=== PATIENT | female | born 1995 | race Hispanic/Latino ===

== ENCOUNTER 2019-11-30 13:52 | Observation (INO) | payer MEDICAID ==
[2019-11-30 16:07] LABS: Bacteria,Urine 4+ /HPF (Negative); Bilirubin,Urine NEG (Negative); Blood,Urine LG (Negative); Color,Urine Yellow (Yellow); Mucus,Urine FEW /HPF; Protein,Urine <15 mg/dL mg/dL (Negative); Urobilinogen,Urine < 2.0 mg/dL (<2.0)
[2019-11-30 16:08] LABS: RBC,Urine > 182.0 /HPF (0.0-6.0)
[2019-11-30 17:28] LABS: Basophils % (Auto) 0.2 % (0.0-1.8); Eosinophils # (Auto) 0.1 K/mm3 (0.0-0.4); Eosinophils % (Auto) 0.9 % (0.0-4.3); Hematocrit 36.6 % (30.3-42.9); Hemoglobin 11.8 gm/dl (10.1-14.3); Lymphocytes # (Auto) 1.9 K/mm3 (1.2-5.4); Lymphocytes % (Auto) 16.7 % (13.4-35.0); Mean Corpuscular HGB Conc 32 % (30-34); Mean Corpuscular Volume 86 fl (79-97); Monocytes # (Auto) 1.1 K/mm3 (0.0-0.8); Monocytes % (Auto) 10.1 % (0.0-7.3); Platelet Count 249 K/mm3 (140-440); Red Blood Count 4.26 M/mm3 (3.65-5.03); Red Cell Distribution Width 14.1 % (13.2-15.2)
[2019-11-30 17:40] VITALS: BP 120/63
[2019-11-30 17:48] LABS: Alanine Aminotransferase 15 units/L (7-56); Uric Acid 6.9 mg/dL (3.5-7.6)
== END 2019-11-30 18:10 | disposition home or self-care (01) ==
LOC: TRG 13:52 → LD 14:23 → INTOOBSV 14:23
PROVIDERS: ADMIT Obstetrics & Gynecology; ATTEND Obstetrics & Gynecology
DX: O99.213 Obesity complicating pregnancy, third trimester (principal); E66.01 Morbid (severe) obesity due to excess calories; Z3A.37 37 weeks gestation of pregnancy; Z68.42 Body mass index [BMI] 45.0-49.9, adult
CPT/HCPCS: 36415; 81001; 82565; 83615; 84450; 84460; 84550; 85025; 87086; G0378

== ENCOUNTER 2019-12-13 20:22 | Inpatient (IN) | payer MEDICAID ==
[2019-12-13] MEDS ORDERED: BUTORPHANOL 2 MG/1 ML INJ IV PRN (23:12)
[2019-12-13] MEDS ORDERED: TERBUTALINE 1 MG/1 ML INJ SUB-Q PRN (23:13)
[2019-12-13] MEDS ORDERED: LACTATED RINGERS 1,000 ML IV SCH (23:45)
[2019-12-13] MEDS: FAMOTIDINE 20 MG TAB PO SCH (23:52)
[2019-12-13] MEDS: miSOPROStol 25 MCG TAB VG SCH (23:58)
[2019-12-14 00:47] LABS: Hematocrit 35.9 % (30.3-42.9); Hemoglobin 12.1 gm/dl (10.1-14.3); Mean Corpuscular HGB Conc 34 % (30-34); Mean Corpuscular Volume 86 fl (79-97); Platelet Count 271 K/mm3 (140-440); Red Cell Distribution Width 14.6 % (13.2-15.2)
[2019-12-14] MEDS: miSOPROStol 25 MCG TAB VG SCH ×3 (03:45→11:45)
[2019-12-14] MEDS ORDERED: LIDOCAINE (2%) 20 MG/1 ML VIAL 20 ML MDV INFILTRATI ONE (08:23)
[2019-12-14] MEDS ORDERED: TERBUTALINE 1 MG/1 ML INJ IVP PRN (08:23)
[2019-12-14] MEDS ORDERED: TERBUTALINE 1 MG/1 ML INJ SUB-Q PRN (08:23)
[2019-12-14] MEDS ORDERED: MINERAL OIL 30 ML ORAL LIQD PO PRN (08:23)
[2019-12-14] MEDS ORDERED: ePHEDrine SULFATE 50 MG/1 ML INJ IV PRN (08:23)
[2019-12-14] MEDS ORDERED: PROMETHAZINE 25 MG TAB PO PRN (08:23)
--- NOTE | 2019-12-14 08:33 | History and Physical Report ---
History of Present Illness Date of examination: 12/14/19 Date of admission: 12/13/19 20:22 Chief complaint: I'm here for induction History of present illness: Pt is 24 year old who presents at 39.2 weeks for induction secondary to morbid obesity per [facility]. Pt has had an uncomplicated course. Pt has high anxiety about her ability to deliver a baby vaginally. She is GBS negative Past History Past Medical History: no pertinent history Past Surgical History: no surgical history Family/Genetic History: none Social history: - Obstetrical History Expected Date of Delivery: 12/19/19 Actual Gestation: 39 Week(s) 2 Day(s) : 1 Para: 0 Number of Living Children: 0 Medications and Allergies Allergies Allergy/AdvReac Type Severity Reaction Status Date / Time No Known Allergies Allergy Verified 12/13/19 23:21 Home Medications Medication Instructions Recorded Confirmed Last Taken Type No Known Home Medications [No 12/13/19 12/13/19 Unknown History Reported Home Medications] Active Meds: Active Medications Butorphanol Tartrate (Stadol) 2 mg IV Q2H PRN PRN Reason: Labor Pain Last Admin: 12/14/19 05:08 Dose: 2 mg Documented by: Ephedrine Sulfate (Ephedrine Sulfate) 10 mg IV Q2M PRN PRN Reason: Hypotension Famotidine (Pepcid) 20 mg PO BID HOLLY Last Admin: 12/13/19 23:52 Dose: 20 mg Documented by: Lactated Ringer's (Lactated Ringers) 1,000 mls @ 125 mls/hr IV DIRECT HOLLY Last Admin: 12/14/19 03:54 Dose: 125 mls/hr Documented by: Oxytocin/Sodium Chloride (Pitocin/Ns 20 Unit/1000ml Drip) 20 units in 1,000 mls @ 125 mls/hr IV DIRECT HOLLY Oxytocin/Sodium Chloride (Pitocin/Ns 30 Unit/500ml) 30 units in 500 mls @ 1 mls/hr IV TITR HOLLY; Protocol Oxytocin/Sodium Chloride (Pitocin/Ns 30 Unit/500ml) 30 units in 500 mls @ 4 mls/hr IV TITR HOLLY; Protocol Lactated Ringer's (Lactated Ringers) 1,000 mls @ 125 mls/hr IV DIRECT HOLLY Lidocaine (Xylocaine 2%) 20 ml INFILTRATI ONCE ONE Stop: 12/14/19 08:24 Mineral Oil (Mineral Oil) 30 ml PO QHS PRN PRN Reason: Constipation Misoprostol (Cytotec) 25 mcg VG Q4H [facility] Stop: 12/14/19 11:46 Last Admin: 12/13/19 23:58 Dose: 25 mcg Documented by: Promethazine HCl (Phenergan) 25 mg PO Q6H PRN PRN Reason: Nausea And Vomiting Terbutaline Sulfate (Brethine) 0.25 mg SUB-Q ONCE PRN PRN Reason: HYPER STIMULATION OF UTERUS Terbutaline Sulfate (Brethine) 0.25 mg SUB-Q ONCE PRN PRN Reason: Hyperstimulation/Hypertonicity Terbutaline Sulfate (Brethine) 0.25 mg IVP ONCE PRN PRN Reason: Hyperstimulation/Hypertonicity Review of Systems All systems: negative Eyes: deferred Ears, nose, mouth and throat: deferred Breasts: deferred Genitourinary: deferred Rectal Exam: deferred - Vital Signs Vital signs: Vital Signs Pulse BP 110 H 137/77 12/13/19 21:50 12/13/19 21:50 Temp Pulse Resp BP Pulse Ox 95 H 24 109/55 98 12/14/19 08:28 12/14/19 05:08 12/14/19 08:23 12/14/19 08:28 - Physical Exam Breasts: Positive: deferred Cardiovascular: Regular rate, Normal S1, Normal S2 Lungs: Positive: Clear to auscultation, Normal air movement Abdomen: Positive: normal appearance, soft, normal bowel sounds Genitourinary (Female): Positive: normal external genitalia, normal perenium Vagina: Positive: normal moisture Uterus: Positive: normal size, enlarged - Obstetrical FHR: auscultation normal Cervical Dilatation: 1 Cervical Effacement Percentage: 50 station: -3 Uterine Contraction Pattern: Irregular Uterine Tone Measurement Phase: Contraction Uterine Contraction Intensity: Moderate Results Result Diagrams: 12/14/19 08:58 Abnormal lab results 12/13/19 Range/Units 23:50 WBC 12.6 H (4.5-11.0) K/mm3 All other labs normal. Assessment and Plan IUP at 39.2 weeks here for induction of labor. Admit to L&D. Begin cytotec placement.Pt has high anxiety regarding delivery and has been stating that she "will probably need a ". I advised patient multiple times that induction may take 2-4 days and that she would need to be patient. Will begin induction on this evening.
[2019-12-14] MEDS ORDERED: OXYTOCIN 20 UNIT/1000ML DRIP 20 UNITS/1,000 ML BAG IV SCH ×3 (09:00→21:28)
[2019-12-14] MEDS ORDERED: LACTATED RINGERS 1,000 ML IV SCH ×2 (09:00→18:00)
[2019-12-14] MEDS ORDERED: OXYTOCIN DRIP 30 UNITS/500 ML BAG IV SCH ×2 (09:00)
[2019-12-14 09:24] LABS: Hematocrit 32.8 % (30.3-42.9); Hemoglobin 10.9 gm/dl (10.1-14.3)
[2019-12-14] MEDS: FAMOTIDINE 20 MG TAB PO SCH (10:00)
--- NOTE | 2019-12-14 16:47 | Event Note ---
Date: 12/14/19 In to see patient. Per nursing staff, patient has been crying and turning all over bed with mild contractions. Pt states that she would prefer a and that "she can't take it". pt appears to be decompensating. I attempted to calm her fears however, she is insistent. Will proceed with .
[2019-12-14] MEDS ORDERED: FAMOTIDINE 20 MG/2 ML INJ IV SCH (17:31)
[2019-12-14] MEDS ORDERED: BICITRA ORAL LIQD 30ML PO SCH (17:31)
[2019-12-14] MEDS ORDERED: METOCLOPRAMIDE 10 MG/2 ML INJ IV SCH (17:31)
--- NOTE | 2019-12-14 17:34 | Anesthesia Day of Surgery ---
Anesthesia Day of Surgery - Day of Surgery Patient Examined: Yes Patient H&P Reviewed: Yes Patient is NPO: No (1300) Beta Blockers: No Cardiac Clearance: No Pulmonary Clearance: No Jake's Test: N/A
[2019-12-14] MEDS ORDERED: ONDANSETRON 4 MG/2 ML INJ IV PRN (17:43)
[2019-12-14] MEDS ORDERED: HYDROmorphone 1 MG/1 ML INJ IV PRN (17:43)
[2019-12-14] MEDS ORDERED: NALOXONE 0.4 MG/1 ML INJ IV PRN ×2 (17:43→21:28)
--- NOTE | 2019-12-14 17:43 | Anesthesia Consultation ---
Anesthesia Consult and Med Hx Date of service: 12/14/19 - Airway Anesthetic Teeth Evaluation: Poor ROM Head & Neck: Adequate Mental/Hyoid Distance: Adequate Mallampati Class: Class III Intubation Access Assessment: Probably Good - Pulmonary Exam CTA: Yes - Cardiac Exam Cardiac Exam: RRR - Pre-Operative Health Status ASA Pre-Surgery Classification: ASA3, Emergency Proposed Anesthetic Plan: General, Spinal - Pulmonary Hx Smoking: No Hx Asthma: No Hx Respiratory Symptoms: No SOB: No COPD: No Home Oxygen Therapy: No Hx Pneumonia: No Hx Sleep Apnea: No - Cardiovascular System Hx Hypertension: No Hx Coronary Artery Disease: No Hx Heart Attack/AMI: No Hx Angina: No Hx Percutaneous Transluminal Coronary Angioplasty (PTCA): No Hx Cardia Arrhythmia: No Hx Pacemaker: No Hx Internal Defibrillator: No Hx Valvular Heart Disease: No Hx Heart Murmur: No Hx Peripheral Vascular Disease: No - Central Nervous System Hx Neuromuscular Disorder: No Hx Seizures: No CVA: No Hx Back Pain: No Hx Psychiatric Problems: Yes (HX OF ANXIETY) - Gastrointestinal Hx Ulcer: No Hx Gastroesophageal Reflux Disease: No - Endocrine Hx Renal Disease: No Hx End Stage Renal Disease: No Hx Cirrhosis: No Hx Liver Disease: No Hx Insulin Dependent Diabetes: No Hx Non-Insulin Dependent Diabetes: No Hx Thyroid Disease: No Hx Hypothyroidism: No Hx Hyperthyroidism: No - Hematic Hx Anemia: No Hx Sickle Cell Disease: No - Other Systems Hx Alcohol Use: No Hx Substance Use: No Hx Cancer: No Hx Obesity: Yes
[2019-12-14] MEDS ORDERED: ceFAZolin/Water 2 GM/20 ML 2 GM/20 ML SYRINGE IV NR (18:00)
[2019-12-14] MEDS ORDERED: BUPIVACAINE/PF (0.25%) 2.5 MG/ML 10 ML VIAL INFILTRATI ONE (18:06)
[2019-12-14] MEDS ORDERED: ONDANSETRON 4 MG/2 ML INJ ONE (18:11)
[2019-12-14] MEDS ORDERED: DEXMEDETOMIDINE 200 MCG/2 ML VIAL IV ONE (18:11)
[2019-12-14] MEDS ORDERED: KETOROLAC 30 MG/1 ML INJ ONE (19:01)
--- NOTE | 2019-12-14 19:20 | Procedure Note ---
OB Delivery Note - Delivery Date of Delivery: 12/14/19 Surgeon: SHARON MCLAUGHLIN Estimated blood loss: other (600) - Section Preop diagnosis: other (failed induction) Postop diagnosis: same section procedure: primary low transverse Disposition: PACU Complications: none Narrative: see op report - A at 1 minute: 8 at 5 minutes: 9 Infant Gender: Male (3998 grams 8'13")
--- NOTE | 2019-12-14 19:23 | Operative Report ---
Operative Report Operative Report: Preoperative diagnosis: Intrauterine at 39 and 4/7 weeks 2. Failed induction 3. Arrest of descent Postoperative diagnosis: Same Procedure: Primary low transverse section Surgeon: Dr. Socorro Johnson EBL: 600 cc Urine output: 200 mL IV fluids: 1200 mL Findings: Viable male in the occiput transverse position weight 8 lbs. 13 oz. 3998 g Apgars 8 and 9. Otherwise normal pelvic anatomy Specimens: None Complications: None Procedure: The patient was admitted to the OR with IV running and in place. She was properly identified as herself. She was given spinal anesthesia in the OR without difficulty. She was placed in the dorsal supine position with a leftward tilt. A London catheter was inserted. She was then prepped and draped in the normal sterile fashion. An Allis test was used to confirm adequate anesthesia. Once confirmed, the incision was made with the scalpel and carried to the underlying fascia using the scalpel and the Bovie. The fascia was incised in the midline and incision was extended bilaterally using the curved Wilkins scissors. The fascia was then dissected from the underlying rectus muscles in a series of sharp and blunt dissection using the Wilkins scissors. Muscles were in the in the midline sharply using Metzenbaum scissors and the peritoneum was entered into bluntly using the surgeon's fingers. And Kavon retractor was placed into the incision. Following this the bladder flap was created. Hysterotomy incision was then made in the scalpel. Upon uterine entry, the amniotic sac was ruptured for clear fluid. The was then delivered without difficulty.. His mouth and nose were suctioned on the field. The cord was clamped and cut and he was handed to the waiting NICU personnel. The uterus was then exteriorized and cleared of all clots and debris. The hysterotomy incision was then closed in a running locked fashion using 0 Vicryl. The abdomen was then copiously irrigated with warm normal saline. Following this the uterus was replaced into the abdominal cavity. The Kavon retractor was then removed. At this point the muscles were reapproximated in the midline using individual sutures of 0 Vicryl. Following this the fascia was closed in a running fashion using 0 Vicryl. Tissue was then copiously irrigated. Retention sutures were placed in the subcutaneous fat tissue Skin was closed in a running fashion using 3-0 Monocryl. The sponge lap needle and instrument counts were correct 2. The patient tolerated the procedure well. She was taken to recovery in stable condition.
[2019-12-14] MEDS ORDERED: PHENYLEPHRINE/NS 1,000 MCG/10 ML SYRINGE (OR USE) IV ONE (19:26)
[2019-12-14] MEDS ORDERED: D5W/LACTATED RINGERS 1,000 ML IV SCH (21:28)
[2019-12-14] MEDS ORDERED: IBUPROFEN 800 MG TAB PO PRN (21:28)
[2019-12-14] MEDS ORDERED: WITCH HAZEL/ GLYCERIN PAD TP PRN (21:28)
[2019-12-14] MEDS ORDERED: KETOROLAC 30 MG/1 ML INJ IV PRN (21:28)
[2019-12-14] MEDS ORDERED: MORPHINE 2 MG/1 ML INJ IV PRN (21:28)
[2019-12-14] MEDS ORDERED: LANOLIN/ZINC/DIMETHICONE (LANSINOH) 7 GM TP PRN (21:28)
[2019-12-14] MEDS ORDERED: ACETAMINOPHEN 325 MG TAB PO PRN (21:28)
[2019-12-14] MEDS ORDERED: MAGNESIUM HYDROXIDE (MOM) ORAL LIQD UDC PO PRN (21:28)
[2019-12-14] MEDS ORDERED: SIMETHICONE 80 MG CHEW TAB PO PRN (21:28)
[2019-12-15 08:42] LABS: Hematocrit 29.7 % (30.3-42.9)
[2019-12-15] MEDS: FERROUS SULFATE 325 MG TAB PO SCH (09:12)
[2019-12-15] MEDS: oxyCODONE /ACETAMINOPHEN 5-325MG TAB PO PRN ×4 (09:12→22:11)
--- NOTE | 2019-12-15 11:04 | Post Anesthesia Evaluation ---
- Post Anesthesia Evaluation Patient Participated: Yes Airway Patent: Yes Stable Respiratory Function: Yes Nausea/Vomiting: No Temp > 96.8F: Yes Pain Manageable: Yes Adequeate Hydration: Yes Anesthesia Complications: No Block Receding Appropriately: Yes Patient on Ventilator: No
--- NOTE | 2019-12-15 13:02 | Progress Note ---
Assessment and Plan A: POD#1 s/p primary at term, Gestational Hypertension, Morbid Obesity P: Routine postop care. Monitor blood pressure curve. Subjective - Subjective Date of service: 12/15/19 Principal diagnosis: s/p primary , gestational hypertension Interval history: Pt feeling well. +flatus. No bowel movement. Ambulating to the bathroom. Patient reports: appetite normal, voiding normally, pain well controlled, flatus, ambulating normally, no bowel movement [place]: doing well Objective - Vital Signs Latest vital signs: Vital Signs Temp Pulse Resp BP Pulse Ox 12/15/19 07:54 98.8 F 91 H 18 152/85 92 12/15/19 07:13 18 12/15/19 05:59 98.8 F 99 H 18 149/85 97 12/15/19 02:55 20 12/15/19 01:23 98.4 F 100 H 18 147/83 98 12/14/19 21:10 97.8 F 85 20 136/54 100 12/14/19 20:15 88 11 L 128/57 99 12/14/19 20:00 81 11 L 104/46 100 12/14/19 19:45 84 12 94/35 100 12/14/19 19:40 76 15 104/39 98 12/14/19 19:36 80 14 104/38 99 12/14/19 19:31 97.8 F 75 11 L 95/32 99 12/14/19 16:20 102 H 98 12/14/19 16:15 122 H 99 12/14/19 16:10 107 H 97 12/14/19 16:05 95 H 99 12/14/19 16:00 96 H 98 12/14/19 15:55 107 H 97 12/14/19 15:52 96 H 143/73 12/14/19 15:50 102 H 97 12/14/19 15:45 98 H 97 12/14/19 15:40 95 H 98 12/14/19 15:35 97 H 97 12/14/19 15:27 101 H 97 12/14/19 15:22 103 H 141/84 98 12/14/19 15:17 99 H 97 12/14/19 15:12 100 H 98 12/14/19 15:04 106 H 98 12/14/19 14:59 108 H 97 12/14/19 14:54 109 H 98 06/05/20 14:52 113 H 136/93 12/14/19 14:49 114 H 97 12/14/19 14:44 104 H 99 12/14/19 14:39 106 H 97 12/14/19 14:34 105 H 97 12/14/19 14:29 111 H 97 12/14/19 14:24 112 H 99 12/14/19 14:19 105 H 99 12/14/19 14:14 114 H 97 12/14/19 14:13 91 12/14/19 14:07 94 12/14/19 14:02 69 88 12/14/19 14:01 91 12/14/19 13:55 51 L 91 12/14/19 13:53 144 H 84 12/14/19 13:50 92 12/14/19 13:46 167 H 87 12/14/19 13:44 84 12/14/19 13:38 85 12/14/19 13:35 83 90 12/14/19 13:32 84 12/14/19 13:21 84 12/14/19 13:11 93 12/14/19 13:06 76 L Intake and Output 12/14/19 12/15/19 12/15/19 22:59 06:59 14:59 Intake Total 1400 480 Output Total 150 550 Balance 1250 -70 Intake: IV 1400 Oral 480 Output: Urine 150 550 Indwelling Catheter 550 Other: Total, Intake Amount 240 Total, Output Amount 550 # Bowel Movements 0 Weight 136.985 kg - Exam Breasts: Present: deferred Abdomen: Present: soft (obese) Extremities: Present: edema (trace) Incision: Present: dressed - Labs Labs: Abnormal lab results 12/15/19 Range/Units 08:07 Hgb 10.0 L (10.1-14.3) gm/dl Hct 29.7 L (30.3-42.9) %
[2019-12-16] MEDS: oxyCODONE /ACETAMINOPHEN 5-325MG TAB PO PRN (02:26)
--- NOTE | 2019-12-16 08:46 | Progress Note ---
Assessment and Plan A: POD# 2 s/p primary at term, Gestational Hypertension, Morbid Obesity. Pt requesting discharge this morning P: Pt informed that leaving prior to 48 hours may be a cause for readmission later. She was instructed to contact 's office tomorrow and schedule a follow up appt within one week. Subjective - Subjective Date of service: 12/16/19 Principal diagnosis: s/p primary , gestational hypertension Interval history: On-call MD contacted by pt's nurse reporting that the patient wants to be discharged this morning or she will sign out against medical advice. She is ambulating well, voiding without difficulty and passing flatus. She has not had a bowel movement. Patient reports: appetite normal, voiding normally, pain well controlled, flatus, ambulating normally, no bowel movement [place]: doing well Objective - Vital Signs Latest vital signs: Vital Signs Temp Pulse Resp BP Pulse Ox 12/15/19 17:10 97.5 F L 93 H 18 142/85 97 Intake and Output 12/15/19 12/16/19 12/16/19 22:59 06:59 14:59 Intake Total 600 Balance 600 Intake: Intake, Free Water 600 Other: # Voids Void 2 1 - Exam Breasts: Present: deferred Abdomen: Present: soft (obese ) Uterus: Present: fundal height below umbilicus Extremities: Present: edema (trace) Incision: Present: intact - Labs Labs: Abnormal lab results 12/15/19 Range/Units 08:07 Hgb 10.0 L (10.1-14.3) gm/dl Hct 29.7 L (30.3-42.9) %
--- NOTE | 2019-12-16 08:49 | Discharge Summary ---
Providers - Providers Date of Admission: 12/13/19 20:22 Date of discharge: 12/16/19 Attending physician: SHARON MCLAUGHLIN Primary care physician: SHARON MCLAUGHLIN Hospitalization Reason for admission: induction of labor Delivery: Procedure: section, primary low transverse Procedure details: Please see operative report. Incision: intact Other procedures: none complications: none Discharge diagnosis: IUP at term delivered [place] baby: male Hospital course: Pt was admitted for induction of labor secondary to morbid obesity and went on to have a primary section which she tolerated well. By POD#2, she met discharge criteria and was adamant about going home. She will follow up within [address] Mclaughlin. Condition at discharge: Stable Disposition: DC-01 TO HOME OR SELFCARE - Discharge Diagnoses (1) Term of male Status: Acute (2) Morbid obesity Status: Acute (3) Gestational hypertension Status: Acute Qualifiers: Trimester: third trimester Qualified Code(s): O13.3 - Gestational [-induced] hypertension without significant proteinuria, third tri mester Plan - Discharge Medications Prescriptions: Docusate Sodium [Colace] 100 mg PO BID PRN #60 capsule PRN Reason: Constipation Ibuprofen [Motrin] 800 mg PO Q8HR PRN #40 tablet PRN Reason: Pain, Mild (1-3) oxyCODONE /ACETAMINOPHEN [Percocet 5/325] 2 tab PO Q6HR PRN #40 tablet PRN Reason: Pain - Provider Discharge Summary Activity: routine, no sex for 6 weeks, no heavy lifting 4 weeks, no strenuous exercise Diet: routine Instructions: routine Additional instructions: [] Smoking cessation referral if applicable(refer to patient education folder for contact #) [] Refer to [facility] Booklet Call your doctor immediately for: * Fever > 100.5 * Heavy vaginal bleeding ( >1 pad per hour) * Severe persistent headache * Shortness of breath * Reddened, hot, painful area to leg or breast * Drainage or odor from incision. * Keep incision clean and dry at all times and follow doctor's instructions regarding bathing/showering - Follow up plan Follow up: SHARON MCLAUGHLIN MD [Primary Care Provider] - 7 Days
[2019-12-16] MEDS: FERROUS SULFATE 325 MG TAB PO SCH (09:16)
[2019-12-16 09:39] VITALS: BP 144/99
== END 2019-12-16 09:56 | disposition home or self-care (01) | DRG 765 ==
LOC: LD 20:22 → OB 12-14 21:16
PROVIDERS: ADMIT Obstetrics & Gynecology; ATTEND Obstetrics & Gynecology
PROC: 10D00Z1 Extraction of Products of Conception, Low, Open Approach (ICD-10-PCS; principal; 2019-12-14)
DX: O13.4 Gestational [pregnancy-induced] hypertension without significant proteinuria, complicating childbirth (principal); D62 Acute posthemorrhagic anemia; O62.1 Secondary uterine inertia; O61.9 Failed induction of labor, unspecified; Z3A.39 39 weeks gestation of pregnancy; Z37.0 Single live birth; O99.214 Obesity complicating childbirth; E66.01 Morbid (severe) obesity due to excess calories; O99.02 Anemia complicating childbirth
CPT/HCPCS: 36415; 85014; 85018; 85027; 86592; 86850; 86900; 86901; G0378; J0595; J0690; J1885; J2270; J2370; J2405; J2590; J2765; J3490; J7120; J7121